=== PATIENT | female | born 2000 | race Caucasian/White ===

== ENCOUNTER 2023-10-28 09:21 | Emergency (ER) | payer SELFPAY ==
[~2023-10-28] VITALS: Ht 157.5 cm; Wt 56.7 kg
[2023-10-28 09:21] VITALS: BP_SYST 125; PULSE 89; RESP 19; TEMP 97.2; O2SAT 99
== END 2023-10-28 09:32 ==
LOC: SED 09:21
DX: F41.9 Anxiety disorder, unspecified (principal)
CPT/HCPCS: 99283